=== PATIENT | male | born 1965 | race Caucasian/White ===

== ENCOUNTER 2018-01-03 22:27 | Emergency (ER) | payer MEDICARE ==
--- NOTE | 2018-01-04 00:45 | XRay Report ---
FINAL REPORT EXAM: XR SPINE LUMBOSACRAL 2-3V HISTORY: Lower back pain TECHNIQUE: Three views of the lumbar spine were obtained. FINDINGS: There are 6 [id number] lumbar vertebral bodies. The disc heights and alignment appear normal. There is no evidence of fracture. The SI joints appear normal. The soft tissues otherwise well maintained. IMPRESSION: No acute findings.
[2018-01-04 07:29] VITALS: BP 131/91
--- NOTE | 2018-01-04 07:31 | Emergency Department Report ---
ED Back Pain/Injury HPI - General Chief Complaint: Back Pain/Injury Stated Complaint: BACK PAIN Time Seen by Provider: 01/04/18 07:26 Source: patient Limitations: No Limitations - History of Present Illness Initial Comments: 52-year-old male past medical history diabetes type 2 presents with complaint of 2 weeks of intermittent lower back pain and slightly increased urinary frequency. Patient is awake alert and oriented 3 denies chest pain palpitations shortness of breath fever chills nausea vomiting. Patient also states he has been having intermittent earaches worse on left than right for several weeks. Denies any discharge from ears or headache. Denies any falls denies any trauma. Denies any rash. Denies any difficulty ambulating. Denies any radiating pain to legs or hips. Denies any saddle paresthesias bladder or bowel incontinence. MD Complaint: back pain Onset/Timin -: week(s) Place: home Severity: mild Severity scale (0 -10): 3 Quality: aching Consistency: intermittent Improves With: immobilization, supine Worsens With: movement Associated Symptoms: denies other symptoms - Related Data Previous Rx's Medication Instructions Recorded Last Taken Type Acetaminophen [Acetaminophen TAB] 500 mg PO Q6HR PRN #30 tablet 01/04/18 Unknown Rx Carbamide Peroxide 6.5% [Ear Wax 5 drops OT TID #1 bottle 01/04/18 Unknown Rx Drops] metFORMIN [Glucophage] 500 mg PO QDAY #30 tab 01/04/18 Unknown Rx Allergies Allergy/AdvReac Type Severity Reaction Status Date / Time No Known Allergies Allergy Unverified 01/03/18 23:06 ED Review of Systems ROS: Stated complaint: BACK PAIN Other details as noted in HPI Constitutional: denies: chills, fever Eyes: denies: eye pain, eye discharge, vision change ENT: ear pain. denies: throat pain Respiratory: denies: cough, shortness of breath, wheezing Cardiovascular: denies: chest pain, palpitations Endocrine: no symptoms reported Gastrointestinal: denies: abdominal pain, nausea, diarrhea Genitourinary: denies: urgency, dysuria Musculoskeletal: back pain. denies: joint swelling, arthralgia Skin: denies: rash, lesions Neurological: denies: headache, weakness, paresthesias Psychiatric: denies: anxiety, depression Hematological/Lymphatic: denies: easy bleeding, easy bruising ED Past Medical Hx - Past Medical History Previous Medical History?: No - Surgical History Past Surgical History?: No - Social History Smoking Status: Never Smoker Substance Use Type: None - Medications Home Medications: Home Medications Medication Instructions Recorded Confirmed Last Taken Type Acetaminophen [Acetaminophen TAB] 500 mg PO Q6HR PRN #30 tablet 01/04/18 Unknown Rx Carbamide Peroxide 6.5% [Ear Wax 5 drops OT TID #1 bottle 01/04/18 Unknown Rx Drops] metFORMIN [Glucophage] 500 mg PO QDAY #30 tab 01/04/18 Unknown Rx ED Physical Exam - General Limitations: No Limitations General appearance: alert, in no apparent distress - Head Head exam: Present: atraumatic, normocephalic - Eye Eye exam: Present: normal appearance, PERRL, EOMI - ENT ENT exam: Present: mucous membranes moist - Expanded ENT Exam Expanded TM/Canal exam: Cerumen Impaction: Right TM, Left TM - Neck Neck exam: Present: normal inspection - Respiratory Respiratory exam: Present: normal lung sounds bilaterally. Absent: respiratory distress - Cardiovascular Cardiovascular Exam: Present: regular rate, normal rhythm. Absent: systolic murmur, diastolic murmur, rubs, gallop - GI/Abdominal GI/Abdominal exam: Present: soft, normal bowel sounds - Rectal Rectal exam: Present: deferred - Extremities Exam Extremities exam: Present: normal inspection - Back Exam Back exam: Present: normal inspection, full ROM (back flexion extension and lateral flexion intact. There is no midline cervical thoracic or lumbar spinal tenderness on deep palpation some paraspinal discomfort. There is no CVA tenderness on percussion) - Neurological Exam Neurological exam: Present: alert, oriented X3, CN II-XII intact, normal gait - Expanded Neurological Exam Expanded Patient oriented to: Present: person, place, time Sensory exam: Upper Extremity Light Touch: Normal, Lower Extremity Light Touch: Normal Motor strength exam: RUE: 5, LUE: 5, RLE: 5, LLE: 5 Best Eye Response (Kathy): (4) open spontaneously Best Motor Response (Kathy): (6) obeys commands Best Verbal Response (Kathy): (5) oriented Kathy Total: 15 - Psychiatric Psychiatric exam: Present: normal affect, normal mood - Skin Skin exam: Present: warm, dry, intact, normal color. Absent: rash ED Course Vital Signs 01/03/18 01/04/18 22:58 07:28 Temperature 98 F 98.0 F Pulse Rate 106 H 98 H Respiratory 16 18 Rate Blood Pressure 133/96 Blood Pressure 131/91 [Left] O2 Sat by Pulse 98 98 Oximetry ED Medical Decision Making - Medical Decision Making A/P: Bilateral partial cerumen impaction, lower back pain 1- Tylenol when necessary 2- Debrox for cerumen impaction 3- x-ray unremarkable, urinalysis shows glucose, possible cause of increased urinary frequency. Advised patient to continue taking his metformin and follow up with primary care. No nitrites or leukocytes. will refill his metformin Rx. I emphasized the importance of follow-up with primary care to the patient 4- vital signs stable for discharge Critical care attestation.: If time is entered above; I have spent that time in minutes in the direct care of this critically ill patient, excluding procedure time. ED Disposition Clinical Impression: Increased urinary frequency Lower back pain Qualifiers: Chronicity: chronic Back pain laterality: midline Sciatica presence: without sciatica Qualified Code(s): M54.5 - Low back pain Disposition: - TO HOME OR SELFCARE Is pt being admited?: No Does the pt Need Aspirin: No Condition: Stable Instructions: Cerumen Impaction (ED), Diabetes Mellitus Type 2 in Adults (ED), Back Pain (ED) Prescriptions: Acetaminophen [Acetaminophen TAB] 500 mg PO Q6HR PRN #30 tablet PRN Reason: Pain Carbamide Peroxide 6.5% [Ear Wax Drops] 5 drops OT TID #1 bottle metFORMIN [Glucophage] 500 mg PO QDAY #30 tab Referrals: [facility] [Outside] - 3-5 Days [facility] [Outside] - 3-5 Days Forms: Work/School Release Form(ED) Time of Disposition: 08:21
[2018-01-04 08:05] LABS: Bilirubin,Urine NEG (Negative); Blood,Urine NEG (Negative); Color,Urine Yellow (Yellow); Mucus,Urine FEW /HPF; Protein,Urine <15 mg/dL mg/dL (Negative); Urobilinogen,Urine < 2.0 mg/dL (<2.0)
== END 2018-01-04 08:40 | disposition home or self-care (01) ==
LOC: ED 22:27
DX: R35.0 Frequency of micturition (principal); M54.5 Low back pain
CPT/HCPCS: 72100; 81001; 99283